=== PATIENT | female | born 1995 | race Caucasian/White ===

== ENCOUNTER 2022-10-05 12:32 | Outpatient (CLI) | payer BC, SELFPAY ==
[2022-10-05 15:45] LABS: Cholesterol* 237 mg/dL (90-199); Glucose* 78 mg/dL (60-115); HDL Cholesterol* 86 mg/dL (>=50); LDL Cholesterol Calculated 139 mg/dL (<100); Triglycerides* 59 mg/dL (40-149)
== END 2022-10-05 12:33 | disposition home or self-care (01) ==
PROVIDERS: PCP Family Medicine; Visit Provider Family Medicine
DX: Z13.1 Encounter for screening for diabetes mellitus (principal); Z13.6 Encounter for screening for cardiovascular disorders
CPT/HCPCS: 80061; 82947

== ENCOUNTER 2023-05-05 12:52 | Outpatient (CLI) | payer BC, SELFPAY ==
--- NOTE | 2023-05-05 13:00 | CRLHL7_ITS ---
For Patients: As a result of the Cures Act, medical imaging exams and procedure reports are released immediately into your electronic medical record. You may view this report before your referring provider. If you have questions, please contact your health care provider. INDICATION: First trimester scan, establish dates. COMPARISON: None. TECHNIQUE: Real-time tapia-scale imaging of the pelvis was performed. FINDINGS: Sonographic imaging demonstrates a single living intrauterine gestation. The embryo demonstrates a regular cardiac rate measuring 173 beats per minute. The embryo`s crown-rump length measurement of 2.6 cm corresponds to a gestational age of 9 weeks 2 days with a sonographic due date of December 06, 2023. There is a normal-appearing yolk sac measuring 2.9 mm. There are no gross abnormalities noted within the embryo at this early state of development. The placenta has not yet developed. The gestational sac has a normal appearance and there is no evidence of a perigestational hemorrhage. The amount of fluid within the sac appears appropriate for gestational age. The cervix is closed. The myometrium appears normal. The ovaries are of normal size. The right ovary measures 3.4 x 1.5 x 1.8 cm. The left ovary measures 3.0 x 2.5 x 2.5 cm. There are no suspicious fluid collections noted in the cul-de-sac. IMPRESSION: Normal first trimester OB ultrasound exam. Gestational age calculated at 9 weeks 2 days with a sonographic due date of December 06, 2023. Dictated by Laci Delacruz MD @ 05/06/2023 9:46:55 AM (Electronically Signed)
== END 2023-05-05 12:53 | disposition home or self-care (01) ==
LOC: US 12:53
PROVIDERS: PCP Family Medicine; Visit Provider Physician Assistant
DX: Z34.91 Encounter for supervision of normal pregnancy, unspecified, first trimester (principal); Z3A.09 9 weeks gestation of pregnancy
CPT/HCPCS: 76817; 86703; 86803; 86850; 86900; 86901; 87086; 87340

== ENCOUNTER 2023-05-05 13:08 | Outpatient (CLI) | payer BC, SELFPAY | END 2023-05-05 13:09 | disposition home or self-care (01) | PROVIDERS: PCP Family Medicine; Visit Provider Physician Assistant | DX: Z34.91 Encounter for supervision of normal pregnancy, unspecified, first trimester (principal); Z3A.09 9 weeks gestation of pregnancy | CPT/HCPCS: 86592; 86703; 86762; 86787; 86803; 86850; 86900; 86901; 87086; 87340 ==

== ENCOUNTER 2023-06-02 15:59 | Outpatient (CLI) | payer BC, SELFPAY ==
[2023-06-02 20:35] LABS: Chlamydia DNA Amplified* NOT DETECTED (No Detected); GC DNA Amplified* NOT DETECTED (No Detected)
== END 2023-06-02 16:00 | disposition home or self-care (01) ==
LOC: NFLDREF 15:59
PROVIDERS: PCP Family Medicine; Visit Provider Physician Assistant
DX: Z34.91 Encounter for supervision of normal pregnancy, unspecified, first trimester (principal); Z3A.13 13 weeks gestation of pregnancy
CPT/HCPCS: 87491; 87591

== ENCOUNTER 2023-07-19 11:53 | Outpatient (CLI) | payer BC, SELFPAY ==
--- NOTE | 2023-07-19 12:15 | CRLHL7_ITS ---
For Patients: As a result of the Century Cures Act, medical imaging exams and procedure reports are released immediately into your electronic medical record. You may view this report before your referring provider. If you have questions, please contact your health care provider. INDICATION: Evaluate anatomy. COMPARISON: 05/05/2023 TECHNIQUE: Real time tapia scale imaging of the fetus was performed as well as color Doppler analysis of the umbilical vessels. FINDINGS: Sonographic imaging demonstrates a single living intrauterine gestation. Fetus demonstrates a regular cardiac rate of 145 beats per minute. Fetus has a vertex position. The placenta lies anteriorly without evidence of placenta previa. The edge of the placenta is located 4.1 cm from the internal cervical os. Amniotic fluid volume appears normal. Single deepest vertical pocket: 4.8 cm. The cervix is closed and measures 4.0 cm in length. The composite ultrasound gestational age is calculated at 20 weeks 1 day with an estimated sonographic due date of 12/05/2023. The estimated weight is 332 grams which lies at the 59th %. The following biometric measurements were obtained: Biparietal diameter: 4.5 cm/19 weeks 5 days 45th% Head circumference: 16.8 cm/19 weeks 3 days 24th% Abdominal circumference: 15.1 cm/20 weeks 2 days 60th% Femur length: 3.2 cm/20 weeks 0 days 49th% The HC/AC ratio measures: 1.12 range (1.07-1.25) On anatomic survey, there is a normal appearance of the cerebral ventricles, cavum septi pellucidi, cisterna magna and cerebellum. The nose, lips, and facial profile appear normal. The cervical, thoracic and lumbar spine are well visualized and appear normal. There is a normal four-chamber heart view and the left and right ventricular outflow tracts appear normal. The diaphragm and stomach appear normal. The kidneys and bladder also appear normal. There is a normal three-vessel cord and cord insertion site. The four extremities appear normal. IMPRESSION: Normal OB ultrasound exam with concordance of clinical and sonographic dating. No intrinsic abnormalities noted on anatomic survey. Dictated by Tim Bates MD @ 07/20/2023 10:29:12 AM (Electronically Signed)
== END 2023-07-19 11:54 | disposition home or self-care (01) ==
PROVIDERS: PCP Family Medicine; Visit Provider Obstetrics & Gynecology
DX: Z34.92 Encounter for supervision of normal pregnancy, unspecified, second trimester (principal); Z3A.20 20 weeks gestation of pregnancy
CPT/HCPCS: 76805

== ENCOUNTER 2023-09-13 13:31 | Outpatient (CLI) | payer BC, SELFPAY | END 2023-09-13 13:32 | disposition home or self-care (01) | LOC: NFLDREF 09-15 04:50 | PROVIDERS: PCP Family Medicine; Referring Provider Family Medicine; Visit Provider Obstetrics & Gynecology | DX: Z34.90 Encounter for supervision of normal pregnancy, unspecified, unspecified trimester (principal) | CPT/HCPCS: 86592 ==

== ENCOUNTER 2023-10-31 15:48 | Outpatient (CLI) | payer BC, SELFPAY ==
--- OUTSIDE RECORDS SUMMARY | 2023-10-31 15:54 | XMS_ITS | Clinical Summary ---
Author Name Unknown Organization [facility] Address [place], [place] [address] Care Team Providers Care Sand Hauler Name Role Phone Andrew Cortes MD Primary Care Provider [phone] Allergies Active Allergy Reactions Criticality Noted Date Comments Shellfish Containing Products *Unknown 2015 Medications Medication Sig Dispensed Refills Start Date End Date Status levonorgestrel-ethiny l estrad, 0.15-30 mg-mcg, (LEVLEN; NORDETTE-28) 0.15-0.03 mg tablet Take 1 tablet by mouth once daily. 1 Package 0 04/27/2016 Active levonorgestrel-ethiny l estrad, 0.15-30 mg-mcg, (LEVLEN; NORDETTE-28) 0.15-0.03 mg tablet Take 1 tablet by mouth once daily. 1 Package 0 07/13/2016 Active ondansetron (ZOFRAN) 4 mg tablet Take 4 mg by mouth every 6 hours if needed. 0 05/19/2021 Active vit 28/iron fum/folic (multivitamin folic acid 1 mg) Take 1 Tablet by mouth once daily. 0 09/09/2021 Active Social History Tobacco Use Types Packs/Day Years Used Date Smoking Tobacco: Never Smokeless Tobacco: Never Tobacco Cessation:Counseling Given: Yes Alcohol Use Standard Drinks/Week Comments Not Currently 3 (1 standard drink = 0.6 oz pur e alcohol) 3-4 drinks per week Social Connections Answer Date Recorded Frequency of Communication with Friends and Fami ly Not on file 10/17/2021 Financial Resource Strain Answer Date R ecorded Difficulty of Paying Living Expenses Not on file 10/17/2021 Difficulty of Paying Living Expenses Not on file 10/17/2021 Estimated Date of Delivery Comme nts Yes 01/04/2022 Sex and Gender Information Value Date Recorded Sex Assigned at Not on file Gender Identity Not on file Sexual Orientation Not on file Obstetrics History Para Term AB IAB SAB Ectopic Multiple Livin g Live Births 1 Date Outcome GA Total Labor Labor/2nd/3rd Weight Sex Delivery Anes PTL Luba A1 A5 Name Cl in Current Last Filed Vital Signs Vital Sign Reading Time Taken Comments Blood Pressure 97/61 07/13/2016 1:21 PM CDT tow er Pulse 72 07/13/2016 1:21 PM CDT Temperature 36.6 ??C (97.8 ??F) 07/13/2016 1:21 PM CD T Respiratory Rate - - Oxygen Saturation 99% 07/13/2016 1:21 PM CDT Inhaled Oxygen Concentration - - Weight 58 kg (127 lb 12.8 oz) 07/13/2016 1:21 PM CDT Height 161.9 cm (5' 3.74) 07/13/2016 1:21 PM CD T Body Mass Index 22.12 07/13/2016 1:21 PM CDT Plan of Treatment Health Maintenance Due Date Last Done Comments COVID-19 vaccine series (#1) 1993 Tdap 2004 Depression screening for age 12+ 2005 HIV for age 15-65 2008 Hepatitis C screening for age 18-79 2011 Tetanus booster 2013 BMI (ht and wt on same day) for age 18+ 07/13/2017 07/13/2016, 04/27/2016 Influenza for age 9-49 06/17/2023 Pap test for age 21-65 06/02/2026 3, 06/02/2023, 05/26/2020, Additional history exists Pneumococcal series for age 6-64 Aged Out No longer eligible based on patient's age to complete this topic Care Teams Sand Hauler Relationship Specialty Start Date End Date Andrew Cortes MD PCP - General Family Practice 04/13/16
[2023-11-01 15:44] LABS: Strep B DNA Probe Negative (Negative)
[2023-11-02 01:09] LABS: Strep B Susceptibility Needed? No
== END 2023-10-31 15:49 | disposition home or self-care (01) ==
LOC: NFLDREF 15:49
PROVIDERS: PCP Family Medicine; Visit Provider Advanced Practice Midwife
DX: Z34.83 Encounter for supervision of other normal pregnancy, third trimester (principal)
CPT/HCPCS: 87081; 87653

== ENCOUNTER 2023-11-09 19:34 | Outpatient (CLI) | payer BC, SELFPAY ==
--- OUTSIDE RECORDS SUMMARY | 2023-11-09 19:37 | XMS_ITS | Clinical Summary ---
Author Name Unknown Organization [facility] Address [place], [place] [address] Care Team Providers Care Culinary Assistant Name Role Phone Andrew Cortes MD Primary Care Provider [phone] Allergies Active Allergy Reactions Criticality Noted Date [...] age to complete this topic Care Teams Culinary Assistant Relationship Specialty Start Date End Date Andrew Cortes MD PCP - General Family Practice 04/13/16
[2023-11-09 19:47] VITALS: PULSE 79; O2SAT 98
[2023-11-09 20:07] VITALS: BP 108/74; PULSE 82; RESP 16; TEMP 36.6
--- NOTE | 2023-11-09 22:42 | PC.OBNST ---
NST Note NST Note Start: 11/09/23 19:55 Freq: ONCE Status: Active Protocol: Document 11/09/23 22:41 BRUCE (Rec: 11/09/23 22:42 BRUCE [id number]) NST Note 2 Para (# of births) 1 EDC 12/07/23 Gestational Age In Weeks & Days 36 Weeks & 0 Days High Risk Factors Diabetes - Gestational Diet Controlled Patient Presented with Complaint(s) of Contractions/cramping Other Complaints Hx of 37 week precip delivery. Reactive Yes Appropriate for Gestational Age Yes CASEY Pierre, RNC Date 11/09/23 Reactive Yes Appropriate for Gestational Age Yes CASEY Higgins, RN Date 11/09/23 OB NST charge Yes Complete NST Note via Write Note Yes The provider's electronic signature indicates the NST is reactive/appropriate for gestational age. *Note to provider: If an addendum is required, open the patient's chart and click on the note under the Nurse/Allied Health tab.
== END 2023-11-09 22:28 | disposition home or self-care (01) ==
LOC: OB OUT 19:35 → OB 19:37
PROVIDERS: PCP Family Medicine; Visit Provider Obstetrics & Gynecology
DX: O47.03 False labor before 37 completed weeks of gestation, third trimester (principal); Z3A.36 36 weeks gestation of pregnancy
CPT/HCPCS: 59025; G0463

== ENCOUNTER 2023-11-18 14:05 | Inpatient (IN) | payer BC, SELFPAY ==
[2023-11-18] VITALS (9 sets, daily range): BP systolic 115–118; BP diastolic 72–85; PULSE 67–99; RESP 16; TEMP 36.9; O2SAT 94–100; BMI 25.9
--- OUTSIDE RECORDS SUMMARY | 2023-11-18 11:58 | XMS_ITS | Clinical Summary ---
Author Name Unknown Organization [facility] Address [place], [place] [address] Care Team Providers Care Pneumatic Tool Repairer Name Role Phone Andrew Cortes MD Primary Care Provider [phone] Allergies Active Allergy Reactions Criticality Noted Date [...] age to complete this topic Care Teams Pneumatic Tool Repairer Relationship Specialty Start Date End Date Andrew Cortes MD PCP - General Family Practice 04/13/16
[2023-11-18 13:17] LABS: Albumin* 3.8 g/dL (3.3-5.0); Chloride* 106 mmol/L (96-114); Potassium* 3.8 mmol/L (3.6-5.1); Sodium* 134 mmol/L (135-149)
[2023-11-18 13:19] LABS: Anion Gap 10 mEq/L (7-15); Bilirubin Total* 0.9 mg/dL (0.1-1.5); Carbon Dioxide* 18 mmol/L (20-32); Creatinine* 0.7 mg/dL (0.5-1.5); Est. Creatinine Clearance* 101.48; Estimated Glomerular Filt Rate 119 ml/min
[2023-11-18 13:20] LABS: Alanine Aminotransferase* 104 U/L (4-35); Alkaline Phosphatase* 314 U/L (40-150); Aspartate Amino Transferase* 66 U/L (12-35); Blood Urea Nitrogen* 16 mg/dL (5-24); Glucose* 96 mg/dL (60-115)
[2023-11-18 14:07] LABS: Basophils Absolute Auto 0.04 K/uL (0.00-0.30); Basophils Percent Auto 0.7 % (0.0-3.0); Eosinophils Absolute Auto 0.12 K/uL (0.00-0.50); Hematocrit 38.5 % (33.0-51.0); Hemoglobin* 13.1 gm/dL (12.0-16.0); Immature Granulocytes Abs Auto 0.04 K/uL (0.00-0.30); Immature Granulocytes Pct Auto 0.7 %; Lymphocytes Percent Auto 24.5 % (20-44); Mean Corpuscular HGB Conc 34 gm/dL (32-36); Mean Corpuscular Hemoglobin 31 pg (26-34); Mean Corpuscular Volume 92 fL (80-100); Monocytes Percent Auto 4.4 % (0.0-11.0); Neutrophils Absolute Auto 4.14 K/uL (1.7-7.0); Neutrophils Percent Auto 67.7 % (42.0-72.0); Platelet Count* 224 K/uL (140-440); RDW Coefficient of Variation % 11.7 % (11.5-15.5); Red Blood Count 4.19 m/uL (4.00-5.20); White Blood Count* 6.11 K/uL (4.50-11.00)
[2023-11-18 14:08] LABS: Slide Review Reflex No
--- NOTE | 2023-11-18 16:01 | P.OBHP_ITS ---
OB - H&P: HPI Labor/Induction History of Present Illness Date Seen: 11/18/23 Chief Complaint: Itchiness of hands and feet. Chief complaint: Maternity : 2 Para: 1 Date of last menstrual period: 03/02/23 Estimated date of delivery: 12/07/23 Gestational age based on last menstrual period: 37 Indications for induction: other (suspected ICP) Narrative: The patient is a 28 year old 2 para 1 at 37 2/7 weeks gestation with BLAZE of 12/07/23 by LMP consistent with 1st trimester ultrasound who presents with complaints of itchiness of hands and feet that has been progressively worsening for the past 2 days. Patient called clinic with concerns of itchiness of her hands and feet that has been worse or more noticeable at night. Patient was instructed to come in to the hospital for evaluation. Upon evaluation at the hospital liver enzymes were found significantly elevated. Concern for intrahepatic cholestasis of at term, recommend admission to hospital for induction of labor. Patient denies any sick contacts, fever, chills, no skin rashes, no one else at home with similar symptoms, no diarrhea, no headache, visual changes or pain in her upper abdomen. Patient has had normal blood pressures during observation and throughout her . Specific Issues/Plans 1. GDM - dx'd 09/13/23 * History of gestational diabetes, diet controlled * Hemoglobin A1c: 5.2% * Early 1 hour GTT: 112 (07/19/23) * 28-week 1 hour GTT: 184 * Q.i.d. blood sugar monitoring * Patient declines need for repeat nutrition counseling, recalls dietary advice * Growth US: Recommended, patient declines 2. History of precipitous delivery at 36 6/7 weeks * Consider GBS test and cervical exam at 35 weeks gestation: completed 3. History of depression, did not take medication prescribed 4. 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 No biopsies. * Needs Pap smear with HPV test Flu: July 2023 TDAP: 10/11/23 RSV: 10/31/2023 COVID: Fully vaccinated, not boosted. PHQ/GRAHAM: 10/11/2023 34wk Hgb: 10/31/2023 History of Present Dating criteria: based on LMP care: good care Ultrasounds: normal 1st trimester US and normal mid trimester US complications: gestational diabetes complications comment: A1 Medical complications: none Review of Systems Status of ROS: Reports: 10 or more systems reviewed and unremarkable except as noted in History and below Meds Home Medications and Allergies Home Medications Medication Instructions Recorded Confirmed Type docosahexaenoic acid 200 mg 1 mg PO QDAY 05/05/23 11/18/23 History capsule ( DHA) diphenhydramine HCl 25 mg capsule 25 mg PO QHS PRN 07/19/23 11/18/23 History (Benadryl) Allergies Allergy/AdvReac Type Severity Reaction Status Date / Time shellfish derived Allergy Verified 11/18/23 12:38 OB - H&P: Exam Physical Exam: Vital signs: Temp Pulse Resp BP Pulse Ox 98.4 F 67 16 117/81 98 11/18/23 12:28 11/18/23 12:41 11/18/23 12:28 11/18/23 12:41 11/18/23 12:16 Narrative: VITAL SIGNS: As noted above. GENERAL APPEARANCE: Alert, cooperative female in no acute distress. MOOD & AFFECT: Normal. HEART: Regular rate and rhythm without murmurs. LUNGS: Lungs are clear to auscultation bilaterally. No crackles, wheezes, or rhonchi. ABDOMEN: Gravid, nontender : 3cm/60%/vx/-2 EXTREMITIES: Nonedematous. Well perfused. Nontender. NEURO: Intact. OB - Results Labs Labs: Short CBC 11/18/23 Range/Units 12:58 WBC 6.11 (4.50-11.00) K/uL Hgb 13.1 (12.0-16.0) gm/dL Hct 38.5 (33.0-51.0) % Plt Count 224 (140-440) K/uL BMP 11/18/23 12:58 Sodium 134 L Potassium 3.8 Chloride 106 Carbon Dioxide 18 L BUN 16 Creatinine 0.7 Glucose 96 Calcium 9.0 Liver Function 11/18/23 Range/Units 12:58 Total Bilirubin 0.9 (0.1-1.5) mg/dL AST 66 H (12-35) U/L ALT 104 H (4-35) U/L Alkaline Phosphatase 314 H (40-150) U/L Albumin 3.8 (3.3-5.0) g/dL OB - Problem Based A/P Additional Plan (1) Intrahepatic cholestasis of : Status: Acute (2) Gestational diabetes: Status: Acute Plan 1. Admit for IOL, will start IV Oxytocin per protocol, AROM when able. 2. GBS negative no need for antibiotics. 3. Monitor BS as per protocol. 4. Patient planning on utilizing Nitrous, open to epidural. 5. Will continue close monitoring of vital signs, if blood pressures remain normal and there are NO DIGITAL MEDIA SALES CONSULTANT irritability symptoms will not repeat labs or plan to repeat them at the moment. 5. History of PP depression and extensive family history of bipolar disorder, close monitoring.
[2023-11-18] MEDS: LACTATED RINGERS 1000 ML 1,000 ML 125 ML IV (16:40)
[2023-11-18] MEDS: OXYTOCIN 30 unit/500 ML in NS 30 UNIT/500 ML BAG IVPB (16:41)
[2023-11-18] MEDS: miSOPROStoL 25 MCG/0.25 TABLET VAGINAL (19:57)
[2023-11-18] MEDS: hydrOXYzine pamoate 25 MG CAPSULE 100 MG PO (20:43)
[2023-11-19] VITALS (16 sets, daily range): BP systolic 109–126; BP diastolic 66–85; PULSE 55–75; RESP 16; TEMP 36.2–36.9; O2SAT 97
--- NOTE | 2023-11-19 02:29 | W.PM.OBVAGDE ---
OB Procedure Vag Delivery Mother Details Mother Details: The patient is a 28 year-old, 2, Para 1, admitted on 11/18/23 at 37 2/7 weeks gestation. Admitted for IOL due to suspected ICP. We started IOL with IV Oxytocin, infusion had to be quickly discontinued after patient started to experience concerns with throat itchiness, cough and swelling as when she has experienced allergic reactions in the past. Symptoms completely resolved after d/c of medication and fluid bolus. : 2 Para: 2 Weeks Gestation: 37.3 Admission Date: 11/18/23 Additional Details Amniotic Membrane Status: AROM Amniotic Membrane Rupture Date: 11/19/23 Amniotic Membrane Rupture Time: 01:10 Amniotic Membrane Fluid Description: Clear Analgesia/Anesthesia Type: None Waterbirth: No Pitcoin: No Intrapartal Events: Labor Induction Induction Method: per misoprostol protocol and AROM Delivery augmentation: rupture of membranes Labor Onset: 00:00 Complete: 02:00 Pushin:57 Heart: heart tones during second stage were category 1. Delivery Details Delivery Date: 11/19/23 Delivery Time: 02:16 Route of delivery: Gender: Female Viability: Alive; Heart Rate Present Position at Delivery: OA Delivery Details: Delivered over intact perineum via spontaneous vaginal delivery. was placed on maternal abdomen.? Cord was clamped and cut after a 30-60 second delay. Nose and mouth were bulb suctioned.? weight pending. 1 Minute Interval Total Score: 8 5 Minute Interval Total Score: 9 Additional Details Shoulder Dystocia: No Placenta Delivery Time: 02:22 (small accessory lobe, placenta to pathology due to ICP) Placental Delivery Description: Spontaneous Procedure Done: Global Blood Loss: 50 Laceration: Periurethral - 1st Degree (not bleeding, not repaired) Episiotomy Description: None Blood Loss Measurement Type: QBL Bakri Used: No Sponge/Need Count Correct: Yes Cord Vessel Description: 3 Vessels Event Summary Status: Mother and were stable after delivery. Disposition: floor
[2023-11-19] MEDS: DOCUSATE SODIUM 100 MG CAPSULE PO (09:00)
[2023-11-20 02:55] VITALS: BP 124/86; PULSE 64; RESP 16; TEMP 36.6; O2SAT 97
[2023-11-20 06:59] LABS: Hemoglobin* 12.9 gm/dL (12.0-16.0)
--- NOTE | 2023-11-20 07:53 | PM.OBPNVD1 ---
OB - PN:Subj Subjective Time Seen by Provider: 07:53 Date Seen: 11/20/23 Patient comments OB post-: no complaints, pain well controlled, tolerating diet and flatus present infant status: [place] feeding status: exclusively Narrative: 28yo PPD#1 from an uncomplicated vaginal delivery. No complaints. Planning going home later today. OB - PN: Obj Exam Physical Exam: Vital signs: Temp Pulse Resp BP Pulse Ox O2 Del Method 97.8 F 64 16 124/86 97 Room Air 11/20/23 02:55 11/20/23 02:55 11/20/23 02:55 11/20/23 02:55 11/20/23 02:55 11/20/23 02:55 Narrative: GENERAL APPEARANCE: Pleasant, , well-groomed woman in no acute distress. VITAL SIGNS: as noted in nursing notes HEAD: Normocephalic, atraumatic. LUNGS: Clear to auscultation bilaterally without wheezes, rales or rhonchi. HEART: Regular rate and rhythm with normal S1 and S2. No gallop, rub or murmur. ABDOMEN: Fundus firm at 2 cm below the umbilicus in the midline. Soft, nontender, nondistended, with normal bowels sounds throughout. EXTREMITIES: No cyanosis, clubbing, or edema. No varicosities. NEUROLOGIC: Normal gait and balance. Normal deep tendon reflexes at bilateral patella 2+/2, equal without clonus. PSYCHIATRIC: alert and oriented x3. Normal speech pattern, eye contact and affect. SKIN: Warm, dry, and well perfused. Good turgor. No lesions, nodules or rashes. OB - PN: Obj Data Labs Labs: Laboratory Results - last 24 hr 11/20/23 06:54 Hgb 12.9 OB - PN: A/P Delivery Assessment and Plan (1) Intrahepatic cholestasis of : Status: Acute (2) Gestational diabetes: Status: Acute (3) Normal spontaneous vaginal delivery: Status: Acute Plan 1. Discharge home today. 2. No restriction is nothing vaginally for 6 weeks. Plan Plan: discharge home
--- NOTE | 2023-11-20 07:57 | P.DS_ITS ---
DS: Providers Provider Time Seen by Provider: 07:57 Date Seen: 11/20/23 Date of admission: 11/18/23 14:05 Primary care physician: Andrew Cortes MD Admitting Clinician: Wilma Du MD Attending Physician on discharge: Marta Burroughs MD Date of Discharge: 11/20/23 DS: Diagnosis Discharge Diagnosis (1) Normal spontaneous vaginal delivery: Status: Acute (2) Intrahepatic cholestasis of : Status: Acute (3) Gestational diabetes: Status: Acute Exam Narrative: Exam Narrative: See my progress note for exam Const: Vital Signs, click to edit/add: Vital Signs - 24 hr 11/19/23 08:50 11/19/23 12:50 11/19/23 16:30 Temperature 97.6 F 98.2 F 97.2 F L Pulse Rate [Pulse Oximeter] 56 L 75 66 Respiratory Rate 16 16 16 Blood Pressure [Le ft Arm] 116/77 114/78 114/75 Pulse Oximetry 97 97 Oxygen Delivery Me thod Room Air Room Air Room Air 11/19/23 19:00 11/19/23 23:38 11/20/23 02:55 Temperature 97.6 F 97.6 F 97.8 F Pulse Rate [Pulse Oximeter] 60 61 64 Respiratory Rate 16 16 16 Blood Pressure [Le ft Arm] 126/85 124/80 124/86 Pulse Oximetry 97 97 97 Oxygen Delivery Me thod Room Air Room Air OB - DS: Summary Hospital Course Hospital Course: The patient is a 28 year old G 2 P 2 at 37+ weeks gestation that was admitted to the Center on 11/18/23 for induction of labor. She had an uncomplicated vaginal delivery. She delivered a viable female infant. She is breast feeding. the patient has done well. [place] Infant Gender: Female Time Spent with Patient Time attestation: Total time spent providing and/or coordinating discharge services: Discharge Plan Discharge Disposition: Home, Self-Care Date of Admission: 11/18/23 14:05 Attending Provider on Discharge: Marta Burroughs Primary Care Provider: Andrew Cortes Condition: Stable Anticipated Discharge Date/Time: 11/20/23 12:30 Discharge Medications: New docusate sodium 100 mg Capsule 100 mg PO BID PRN (Reason: constipation) Qty: 100 0RF ibuprofen 600 mg Tablet 600 mg PO Q6H PRNQty: 30 0RF Continued diphenhydramine HCl [Benadryl] 25 mg capsule 25 mg PO QHS PRN DHA 200 mg capsule 1 mg PO QDAY No Action (DME) Test Strips Misc See Rx Instructions .MEDSUPPLY Qty: 100 3RF Rx Instructions: Test blood sugar 4 times daily. (DME) Blood Glucose Meter Misc See Rx Instructions .MEDSUPPLY Qty: 1 0RF Rx Instructions: As directed (DME) lancets Misc See Rx Instructions .MEDSUPPLY Qty: 100 3RF Rx Instructions: Test blood sugar 4 times daily. Discharge Orders: Discharge Order (Routine); Ordered 11/20/23 Ordered By: Marta Burroughs Patient Education: Vaginal Delivery (DC) Additional Instructions: ACTIVITY RESTRICTIONS: * Nothing vaginally for 6 weeks: no tampons/intercourse * No driving while taking narcotic pain medication during the day. 1-2 weeks. Okay to be the passenger anytime. * Lifting restriction: Maximum of 20 pounds for 6 weeks. * High impact or core exercises: 6 weeks. * Submerge the incision in water (bath/pool/truong): 2 weeks. * Off of work/school for a minimum of 8 weeks NO RESTRICTIONS for: * Walking * Going up/down stairs * Showering Symptoms to report to doctor: -Bleeding that saturates more than one pad per hour ?-Passing clots larger than the size of a golf ball ?-Pain not relieved by prescribed medication ?-Fever above 100.4 degrees Fahrenheit ?-A foul vaginal odor ?-Difficulty in emotions, mood and functions ?-Thoughts of hurting yourself and/or ?-Painful, reddened area in your breast ?-Any drainage, redness or tenderness in your IV/epidural site ?-Severe headache that doesn't improve after taking medications ?-Changes in vision, including temporary loss of vision, blurred vision, and/or light sensitivity ?-Upper abdominal pain (usually under ribs on the right side) ?-Decrease in urination or painful, frequent urinating ?-Chest pain ?-Shortness of breath ?-Tenderness or pain with redness and/swelling in the calf(s) of your leg Follow-up: 1. [facility] in 2 weeks (optional): Screen for anxiety/depression, discuss contraceptive options, answer questions regarding infant care. 2. A 6 week visit for an annual physical exam. consultation services are available to all mothers and babies for the first year after delivery.? To make an appointment, please call [phone]. Follow Up Appointments: Andrew Cortes MD [Primary Care Provider] - Forms: [employer] Info Instructions
[2023-11-20 08:00] VITALS: BP 115/69; PULSE 65; RESP 16; TEMP 36.6; O2SAT 97
[2023-11-20 14:19] LABS: Bile Acids, Total 70 umol/L (0-10)
== END 2023-11-20 10:00 | disposition home or self-care (01) | DRG 560 ==
LOC: OB OUT 14:09 → OB 14:09
PROVIDERS: Admitting Provider Obstetrics & Gynecology; PCP Family Medicine; Visit Provider Obstetrics & Gynecology
DX: O24.420 Gestational diabetes mellitus in childbirth, diet controlled (principal); O26.643 Intrahepatic cholestasis of pregnancy, third trimester; Z87.410 Personal history of cervical dysplasia; O9A.22 Injury, poisoning and certain other consequences of external causes complicating childbirth; T48.0X5A Adverse effect of oxytocic drugs, initial encounter; Z3A.37 37 weeks gestation of pregnancy; Z37.0 Single live birth
CPT/HCPCS: 36415; 59200; 80053; 82239; 82962; 85018; 85025; G0463; A9270; J7120